=== PATIENT | female | born 1935 | race Caucasian/White ===

== ENCOUNTER 2017-09-17 08:16 | Emergency (ER) | payer MEDICARE, OTHER ==
[~2017-09-17] VITALS: Ht 162.6 cm; Wt 85.0 kg
[~2017-09-17 08:16] MED LIST: ESTR42.5V PV; LEVO.125; NITR1CAP37 PO
[2017-09-17 08:20] VITALS: BP 140/82; PULSE 61; RESP 16; TEMP 98.4; O2SAT 95
[2017-09-17] MEDS ORDERED: LEVO.125 PO (08:44)
[2017-09-17] MEDS ORDERED: ASPI81CH CHEW (08:44)
[2017-09-17] MEDS ORDERED: ONDANSETRON HCL 4 MG/2 ML VIAL IV PUSH ONE (08:45)
[2017-09-17] MEDS ORDERED: SODIUM CHLOR 0.9% 1000 ML INJ 1,000 ML IV SCH (08:45)
--- NOTE | 2017-09-17 08:45 | PD ---
HPI Chief Complaint: GI Complaint Time Seen by Provider: 08:26 Travel History International Travel<30 days: No Contact w/Intl Traveler<30days: No Traveled to known affect area: No History of Present Illness HPI This 82-year-old female says she started feeling badly this morning. She had gotten up and taken her dog for a walk. She got home she started perspiring and she felt very nauseated. She looked in the mirror and noticed that she was very pale. She called her neighbor who brought her here. She did not have any chest pain. She has no history of heart disease took a baby aspirin prior to coming. She had severe nausea did not vomit and had no diarrhea. She is still nauseated though it is not as severe as it was before. She thinks that her heart may have been racing at that time. She does take thyroid medication as her only medication she does not have exertional chest pain she has occasional back pain which she believes is musculoskeletal. She is generally quite active. She has had a rash on the right side of her abdomen for about a month. She has a history of urinary tract infections and has a pelvic sling [facility] Past Medical History High Cholesterol: Yes Chemotherapy: Yes Diminished Hearing: No Musculoskeletal: Yes (ROSALINA [employer] FX CHILD) Thyroid Disease: Yes ?: Not Past Surgical History Endocrine Surgery: Yes (THYROIDECTOMY) Gynecologic Surgery: Yes (OVARY REMOVED CANNOT REMEMBER WHICH ONE) Hysterectomy: Yes Other Surgery: Yes (BREAST REDUCTION) Social History Alcohol Use: No Tobacco Use: No Substance Use: No Allergies-Medications (Allergen,Severity, Reaction): Coded Allergies: No Known Allergies (Verified , 09/17/17) Reported Meds & Prescriptions Reported Meds & Active Scripts Active Reported Aspirin 81 Mg Chew 81 Mg CHEW DAILY Synthroid (Levothyroxine Sodium) 125 Mcg Tab 125 Mcg PO DAILY Review of Systems General / Constitutional: No: Fever, Chills Eyes: No: Diploplia, Blurred Vision HENT: No: Headaches, Vertigo Cardiovascular: Positive: Diaphoresis, No: Chest Pain or Discomfort Respiratory: No: Cough, Shortness of Breath Gastrointestinal: Positive: Nausea Genitourinary: No: Urgency, Frequency Musculoskeletal: No: Myalgias Skin: No Rash, No Itching Neurologic: Positive: Weakness, No: Dizziness Psychiatric: No: Anxiety Endocrine: No: Heat Intolerance, Cold Intolerance Hematologic/Lymphatic: No: Easy Bruising Physical Exam Narrative GENERAL: Well-developed female SKIN: Focused skin assessment warm/dry. HEAD: Atraumatic. Normocephalic. EYES: Pupils equal and round. No scleral icterus. No injection or drainage. ENT: No nasal bleeding or discharge. Mucous membranes pink and moist. NECK: Trachea midline. No JVD. CARDIOVASCULAR: Regular rate and rhythm. No murmur appreciated. RESPIRATORY: No accessory muscle use. Clear to auscultation. Breath sounds equal bilaterally. GASTROINTESTINAL: Abdomen soft, non-tender, nondistended. Hepatic and splenic margins not palpable. MUSCULOSKELETAL: No obvious deformities. No clubbing. No cyanosis. No edema. NEUROLOGICAL: Awake and alert. No obvious cranial nerve deficits. Motor grossly within normal limits. Normal speech. PSYCHIATRIC: Appropriate mood and affect; insight and judgment normal. Data Data Last Documented VS Vital Signs Date Time Temp Pulse Resp B/P (MAP) Pulse Ox O2 Delivery O2 Flow Rate FiO2 09/17/17 10:20 91 132/74 (93) 69 153/77 (102) 66 164/84 (110) 09/17/17 08:45 16 09/17/17 08:20 98.4 95 Orders Orders Complete Blood Count With Diff (09/17/17 08:40) Comprehensive Metabolic Panel (09/17/17 08:40) Troponin I (09/17/17 08:40) Urinalysis - C+S If Indicated (09/17/17 08:40) Thyroid Stimulating Hormone (09/17/17 08:40) Sodium Chlor 0.9% 1000 Ml Inj (Ns 1000 M (09/17/17 08:45) Ondansetron Inj (Zofran Inj) (09/17/17 08:45) Lipase (09/17/17 08:40) Orthostatic Vital Signs (09/17/17 09:27) Urine Culture (09/17/17 10:32) Sulfamet-Trimeth Ds 800-160 Mg (Bactrim (09/17/17 11:00) Labs Laboratory Tests Test 09/17/17 08:27 09/17/17 10:32 White Blood Count 3.3 TH/MM3 Red Blood Count 4.38 MIL/MM3 Hemoglobin 13.1 GM/DL Hematocrit 39.1 % Mean Corpuscular Volume 89.4 FL Mean Corpuscular Hemoglobin 30.0 PG Mean Corpuscular Hemoglobin Concent 33.5 % Red Cell Distribution Width 12.1 % Platelet Count 203 TH/MM3 Mean Platelet Volume 6.9 FL Neutrophils (%) (Auto) 58.2 % Lymphocytes (%) (Auto) 29.0 % Monocytes (%) (Auto) 9.6 % Eosinophils (%) (Auto) 2.7 % Basophils (%) (Auto) 0.5 % Neutrophils # (Auto) 1.9 TH/MM3 Lymphocytes # (Auto) 1.0 TH/MM3 Monocytes # (Auto) 0.3 TH/MM3 Eosinophils # (Auto) 0.1 TH/MM3 Basophils # (Auto) 0.0 TH/MM3 CBC Comment DIFF FINAL Differential Comment Blood Urea Nitrogen 19 MG/DL Creatinine 0.74 MG/DL Random Glucose 109 MG/DL Total Protein 7.4 GM/DL Albumin 3.7 GM/DL Calcium Level 9.0 MG/DL Alkaline Phosphatase 72 U/L Aspartate Amino Transf (AST/SGOT) 31 U/L Alanine Aminotransferase (ALT/SGPT) 41 U/L Total Bilirubin 0.4 MG/DL Sodium Level 140 MEQ/L Potassium Level 4.0 MEQ/L Chloride Level 104 MEQ/L Carbon Dioxide Level 30.2 MEQ/L Anion Gap 6 MEQ/L Estimat Glomerular Filtration Rate 75 ML/MIN Troponin I LESS THAN 0.02 NG/ML Lipase 227 U/L Thyroid Stimulating Hormone 3rd Gen 6.370 uIU/ML Urine Collection Type CLEAN CATCH Urine Color YELLOW Urine Turbidity CLOUDY Urine pH 5.5 Urine Specific [place] 1.016 Urine Protein NEG mg/dL Urine Glucose (UA) NEG mg/dL Urine Ketones NEG mg/dL Urine Occult Blood SMALL Urine Nitrite POS Urine Bilirubin NEG Urine Leukocyte Esterase MOD Urine RBC 0-3 /hpf Urine WBC 25-49 /hpf Urine WBC Clumps OCC Urine Bacteria MANY /hpf Microscopic Urinalysis Comment CULTURE INDICATED MDM Medical Decision Making Medical Screen Exam Complete: Yes Emergency Medical Condition: Yes Medical Record Reviewed: Yes Differential Diagnosis Differential includes dysrhythmia, infection, anemia, MT Narrative Course EKG shows sinus rhythm at a rate of about 56. Troponin is negative. Urinalysis does show significant infection. Her lab work is otherwise unremarkable. Her TSH is slightly elevated I will prescribe Bactrim. Whether her UTI was responsible for her bout of nausea and diaphoresis is not clear as possible that she had a dysrhythmia or other event there is no evidence of myocardial infarction Diagnosis Primary Impression: Urinary tract infection Qualified Codes: N39.0 - Urinary tract infection, site not specified Scripts Sulfamethoxazole-Trimethoprim (Bactrim DS) 800-160 Mg Tab 1 TAB PO BID for Infection, #14 TAB 0 Refills Prov: Juan C Hassan MD 09/17/17 Disposition: 01 DISCHARGE HOME Condition: Stable Juan C Hassan MD Sep 17, 2017 08:45
[2017-09-17 09:00] LABS: AUTOMATED NEUTROPHIL # 1.9 TH/MM3 (1.8-7.7); BASOPHIL % 0.5 % (0.0-2.0); EOSINOPHIL # 0.1 TH/MM3 (0-0.4); EOSINOPHIL % 2.7 % (0.0-4.0); HEMATOCRIT 39.1 % (35.0-46.0); HEMO FLAGS DIFF FINAL; MEAN CELL VOLUME 89.4 FL (80.0-100.0); MEAN CORPUSCULAR HGB CONC 33.5 % (32.0-36.0); MONO % 9.6 % (0.0-8.0); NEUT % 58.2 % (16.0-70.0); PLATELET COUNT 203 TH/MM3 (150-450); RED BLOOD COUNT 4.38 MIL/MM3 (4.00-5.30); RED CELL DISTRIBUTION WIDTH 12.1 % (11.6-17.2); WHITE BLOOD COUNT 3.3 TH/MM3 (4.0-11.0)
[2017-09-17 09:07] LABS: CHLORIDE 104 MEQ/L (98-107); SODIUM (NA) 140 MEQ/L (136-145)
[2017-09-17 09:10] LABS: ANION GAP 6 MEQ/L (5-15); BICARBONATE 30.2 MEQ/L (21.0-32.0)
[2017-09-17 09:11] LABS: BLOOD UREA NITROGEN 19 MG/DL (7-18)
[2017-09-17 09:13] LABS: ALT (GPT) 41 U/L (10-53); AST (GOT) 31 U/L (15-37); GLOMERULAR FILTRATION RATE 75 ML/MIN (>89)
[2017-09-17 09:15] LABS: TOTAL BILIRUBIN ADULT 0.4 MG/DL (0.2-1.0)
[2017-09-17 09:16] LABS: ALKALINE PHOSPHATASE 72 U/L (45-117)
[2017-09-17 10:20] VITALS: BP_SYST 132; BP_SYST 153; BP_SYST 164; BP_DIAS 74; BP_DIAS 77; BP_DIAS 84
[2017-09-17 10:37] LABS: BLOOD, URINE SMALL (NEG); GLUCOSE,URINE NEG (NEG); KETONE, URINE NEG (NEG); NITRITE,URINE POS (NEG); PH, URINE 5.5 (5.0-8.5)
[2017-09-17 10:47] LABS: METHOD OF COLLECTION CLEAN CATCH; URINE COLOR YELLOW (YELLW/STRAW)
[2017-09-17 10:48] LABS: BACTERIA, URINE MANY /hpf; COMMENT (UR) CULTURE INDICATED; CULTURE IF INDICATED CULTURE INDICATED; RBC, URINE 0-3 /hpf (0-3)
[2017-09-17] MEDS ORDERED: SULFAMETHOXAZOLE-TRIMETHOPRIM DS 800-160 MG TAB PO ONE (11:00)
[2017-09-17] MEDS ORDERED: BACT800T5 PO (11:00)
[2017-09-17 11:14] VITALS: BP 156/86
--- NOTE | 2017-09-18 07:35 | EKG ---
Date Performed: 09/17/2017 Time Performed: 08:20:35 PTAGE: 82 years EKG: SINUS BRADYCARDIA LOW QRS VOLTAGE IN PRECORDIAL LEADS BORDERLINE ECG Compared to PREVIOUS TRACING , low precordial lead voltage is new. PREVIOUS TRACIN11/10/1993 15.41 DOCTOR: Helio Guido Interpretating Date/Time 09/18/2017 07:34:19
== END 2017-09-17 11:24 | disposition home or self-care (01) ==
LOC: PHED 08:16
DX: N39.0 Urinary tract infection, site not specified (principal); B96.20 Unspecified Escherichia coli [E. coli] as the cause of diseases classified elsewhere; B96.1 Klebsiella pneumoniae [K. pneumoniae] as the cause of diseases classified elsewhere; R00.1 Bradycardia, unspecified
CPT/HCPCS: 80053; 81001; 83690; 84443; 84484; 85025; 87077; 87086; 87186; 93005; 96361; 96374; 99284; J2405; J7030